=== PATIENT | female | born 1975 | race Two or more races ===

== ENCOUNTER 2021-01-07 17:27 | Emergency (ER) | payer OTHER ==
[~2021-01-07] VITALS: Ht 162.6 cm; Wt 68.0 kg
[2021-01-07] MEDS ORDERED: BETAMETHASONE D15 G2 TOP (18:21)
== END 2021-01-07 18:31 | disposition home or self-care (01) ==
LOC: ER 17:27
DX: L30.1 Dyshidrosis [pompholyx] (principal); L30.8 Other specified dermatitis